=== PATIENT | female | born 1945 | race Caucasian/White ===

== ENCOUNTER 2021-06-15 07:02 | Day surgery (SDC) | payer OTHER ==
[2021-06-13 12:16] VITALS: BMI 21.3
[2021-06-15] MEDS ORDERED: CARBACHOL 0.01% INTRA-OCULAR 1.5 ML VIAL ONE (07:15)
[2021-06-15] MEDS ORDERED: TETRACAINE 0.5% OPHTH SOLN 2 ML BOTTLE ONE (07:15)
[2021-06-15] MEDS ORDERED: NEO/POLYMYX B SULF/DEXAMETH OPHTHALMIC 5ML BOTTLE ONE (07:15)
[2021-06-15] MEDS ORDERED: BSS (NA/CA/MG/K) BALANCED SALT SOLUTION OPHTH SOLN 15 ML BOTTLE ONE (07:15)
[2021-06-15] MEDS ORDERED: LIDOCAINE 1% P/F 10 MG/ML VIAL ONE (07:15)
[2021-06-15] MEDS: CYCLOPENTOLATE 2% OPHTH SOLN 2 ML BOTTLE ONE ×3 (07:45→07:55)
[2021-06-15] MEDS: CIPROFLOXACIN 0.3% EYE DROPS 5 ML BOTTLE ONE ×3 (07:45→07:55)
[2021-06-15] MEDS: TROPICAMIDE 1% OPHTH SOLN 15 ML BOTTLE ONE ×3 (07:45→07:55)
[2021-06-15] MEDS: PHENYLEPHRINE 2.5% OPHTH SOLN 15 ML BOTTLE ONE ×3 (07:45→07:55)
[2021-06-15 07:47] VITALS: TEMP 97.7
[2021-06-15] MEDS ORDERED: MIDAZOLAM HCL 2 MG/2 ML SINGLE DOSE VIAL ONE (08:22)
[2021-06-15 09:12] VITALS: BP 121/79; PULSE 89
== END 2021-06-15 09:10 | disposition home or self-care (01) ==
LOC: FASU 07:02
PROVIDERS: ATTEND Ophthalmology
PROC: 08RK3JZ Replacement of Left Lens with Synthetic Substitute, Percutaneous Approach (ICD-10-PCS; principal; 2021-06-15 08:29)
DX: H26.8 Other specified cataract (principal)
CPT/HCPCS: 66984; V2632; 82962

== ENCOUNTER 2021-06-29 06:14 | Day surgery (SDC) | payer OTHER ==
[2021-06-27 11:45] VITALS: BMI 21.3
[2021-06-29] MEDS: CYCLOPENTOLATE 2% OPHTH SOLN 2 ML BOTTLE ONE ×3 (06:40→06:50)
[2021-06-29] MEDS: TROPICAMIDE 1% OPHTH SOLN 15 ML BOTTLE ONE ×3 (06:40→06:50)
[2021-06-29] MEDS: CIPROFLOXACIN 0.3% EYE DROPS 5 ML BOTTLE ONE ×3 (06:40→06:50)
[2021-06-29] MEDS: PHENYLEPHRINE 2.5% OPHTH SOLN 15 ML BOTTLE ONE ×3 (06:40→06:50)
[2021-06-29] MEDS ORDERED: MIDAZOLAM HCL 2 MG/2 ML SINGLE DOSE VIAL ONE (07:10)
[2021-06-29] MEDS ORDERED: PHENYLEPHRINE/KETOROLAC 4 ML VIAL IO ONE (07:19)
[2021-06-29] MEDS ORDERED: LIDOCAINE 1% P/F 10 MG/ML VIAL ONE (07:19)
[2021-06-29] MEDS ORDERED: TRYPAN BLUE 0.5 ML DISP.SYRIN ONE (07:19)
[2021-06-29] MEDS ORDERED: BSS (NA/CA/MG/K) BALANCED SALT SOLUTION OPHTH SOLN 15 ML BOTTLE ONE (07:20)
[2021-06-29] MEDS ORDERED: ACETYLCHOLINE 1:100 INTRA-OCUL 20 MG/2 ML KIT ONE (07:20)
[2021-06-29] MEDS ORDERED: TETRACAINE 0.5% OPHTH SOLN 2 ML BOTTLE ONE (07:20)
[2021-06-29] MEDS ORDERED: NEO/POLYMYX B SULF/DEXAMETH OPHTHALMIC 5ML BOTTLE ONE (07:21)
[2021-06-29] MEDS ORDERED: CARBACHOL 0.01% INTRA-OCULAR 1.5 ML VIAL ONE (07:21)
[2021-06-29] MEDS ORDERED: EPINEPHrine/PF 1 MG/1 ML (1:1,000) AMPULE ONE (07:22)
[2021-06-29 08:26] VITALS: TEMP 97.6
[2021-06-29 08:39] VITALS: BP 126/74; PULSE 88
== END 2021-06-29 08:48 | disposition home or self-care (01) ==
LOC: FASU 06:14
PROVIDERS: ATTEND Ophthalmology
PROC: 08RJ3JZ Replacement of Right Lens with Synthetic Substitute, Percutaneous Approach (ICD-10-PCS; principal; 2021-06-29 08:05)
DX: H26.8 Other specified cataract (principal)
CPT/HCPCS: 66984; V2632; 82962; J1097